=== PATIENT | female | born 1945 ===

== ENCOUNTER 2017-12-31 06:47 | Day surgery (SDC) | payer MEDICARE, OTHER ==
[2016-05-06 10:23] VITALS: BMI 39.9
[2017-12-31] MEDS ORDERED: Propofol 10 mg/ml Inj (20 ML) ONE (08:54)
[2017-12-31] MEDS ORDERED: Lactated Ringer's 1,000 ML IV ONE (08:55)
[2017-12-31 10:00] VITALS: O2SAT 99
[2017-12-31 10:36] VITALS: BP 140/72; PULSE 57; RESP 15; TEMP 97
== END 2017-12-31 10:30 | disposition home or self-care (01) ==
LOC: C.ENDO 06:47
PROVIDERS: ATTEND Internal Medicine Gastroenterology
DX: Z12.11 Encounter for screening for malignant neoplasm of colon (principal); K64.1 Second degree hemorrhoids; K57.30 Diverticulosis of large intestine without perforation or abscess without bleeding; I10 Essential (primary) hypertension; E03.9 Hypothyroidism, unspecified; E66.9 Obesity, unspecified; Z68.38 Body mass index [BMI] 38.0-38.9, adult; Z86.010 Personal history of colon polyps; Z79.899 Other long term (current) drug therapy
CPT/HCPCS: G0105; J2704; J7120